=== PATIENT | male | born 1990 | race African-American/Black ===

== ENCOUNTER 2021-01-26 10:15 | Emergency (ER) | payer OTHER, SELFPAY ==
--- NOTE | 2021-01-26 11:01 | EDPHYS ---
Physician Documentation [facility] Name: Venancio Velasquez Age: 30 yrs Sex: Male : 1990 Arrival Date: 01/26/2021 Time: 10:17 Bed 12 Private MD: JAC Physician Lorenzo Ferreira HPI: 01/26 11:03 This 30 yrs old Black Male presents to ER via Ambulatory with complaints of Toothache. kb 11:03 The patient presents with pain, redness, swelling. The problem is located in the lower kb left second bicuspid (#20) and lower left second molar (#18). Onset: The symptoms/episode began/occurred 4 day(s) ago. Duration: The symptoms are continuous. Modifying factors: The symptoms are alleviated by nothing, the symptoms are aggravated by nothing. Associated signs and symptoms: Pertinent positives: pain, redness in area, swelling. Severity of symptoms: At their worst the symptoms were moderate, in the emergency department the symptoms are unchanged. The patient has not experienced similar symptoms in the past. The patient has not recently seen a physician. Historical: - Allergies: 10:47 No Known Allergies; aa5 - PMHx: 10:47 None; aa5 - PSHx: 10:47 None; aa5 - Immunization history:: Client reports having NOT received the Covid vaccine. - Social history:: Smoking status: Patient denies any tobacco usage or history of. ROS: 11:03 Constitutional: Negative for fever, chills, and weight loss. kb 11:03 ENT: Positive for dental pain. 11:03 All other systems are negative. Exam: 11:03 Constitutional: This is a well developed, well nourished patient who is awake, alert, kb and in no acute distress. Head/Face: Normocephalic, atraumatic. Respiratory: Respirations even and unlabored. No increased work of breathing, no retractions or nasal flaring. Skin: Warm, dry with normal turgor. Normal color. MS/ Extremity: Pulses equal, no cyanosis. Neurovascular intact. Full, normal range of motion. Neuro: Awake and alert, GCS 15, oriented to person, place, time, and situation. Moves all extremities. Normal gait. Psych: Awake, alert, with orientation to person, place and time. Behavior, mood, and affect are within normal limits. 11:03 ENT: Dental exam: dental caries, that is moderate, specifically in the lower left second molar (#18) and lower left second bicuspid (#20), fractured teeth are noted, specifically the lower left second molar (#18) and lower left second bicuspid (#20), gum swelling, that is moderate, pain, that is moderate. Vital Signs: 10:45 BP 149 / 90; Pulse 90; Resp 18 S; Temp 99.0(TE); Pulse Ox 97% on R/A; Weight 65.77 kg aa5 (R); Height 5 ft. 8 in. (172.72 cm) (R); 10:45 Body Mass Index 22.05 (65.77 kg, 172.72 cm) aa5 MDM: 10:55 Patient medically screened. kb 11:02 Data reviewed: vital signs, nurses notes. Data interpreted: Pulse oximetry: on room air kb is 97 %. Interpretation: normal. Counseling: I had a detailed discussion with the patient and/or guardian regarding: the historical points, exam findings, and any diagnostic results supporting the discharge/admit diagnosis, the need for outpatient follow up, a dentist, to return to the emergency department if symptoms worsen or persist or if there are any questions or concerns that arise at home. Administered Medications: No medications were administered Disposition: 01/27 05:49 Co-signature as Attending Physician, Lorenzo Ferreira MD I agree with the assessment and demetrio plan of care. Disposition Summary: 01/26/21 11:00 Discharge Ordered Location: Home kb Condition: Stable kb Diagnosis - Periapical abscess without sinus kb Followup: kb - With: Emergency Department - When: As needed - Reason: Worsening of condition Followup: kb - With: Private Physician - When: 2 - 3 days - Reason: Recheck today's complaints, Continuance of care, Re-evaluation by your physician Discharge Instructions: - Discharge Summary Sheet kb - Dental Pain, [id number] kb - Dental Abscess, [id number] kb Forms: - Medication Reconciliation Form kb - Thank You Letter kb - Antibiotic Education kb - Prescription Opioid Use kb Prescriptions: - Augmentin 875-125 mg Oral Tablet - take 1 tablet by ORAL route every 12 hours for 10 days; 20 tablet; Refills: 0, kb Product Selection Permitted - Diclofenac Sodium 75 mg Oral tablet,delayed release (DR/EC) - take 1 tablet by ORAL route 2 times per day As needed; 30 tablet; Refills: 0, kb Product Selection Permitted Signatures: Ada Oviedo, GRAIN WEIGHER-C GRAIN WEIGHER-Ckb Lorenzo Ferreira MD MD cha Calderon, Audri RN RN aa5
--- NOTE | 2021-01-26 11:01 | ER ---
Nurse's Notes [facility] Name: Venancio Velasquez Age: 30 yrs Sex: Male : 1990 Arrival Date: 01/26/2021 Time: 10:17 Bed 12 Private MD: Diagnosis: Periapical abscess without sinus Presentation: 01/26 10:45 Chief complaint: Patient states: "I have a toothache that started Tuesday after I ate aa5 some skittles". Coronavirus screen: At this time, the client does not indicate any symptoms associated with coronavirus-19. Ebola Screen: Patient negative for fever greater than or equal to 101.5 degrees Fahrenheit, and additional compatible Ebola Virus Disease symptoms. Initial Sepsis Screen: Does the patient meet any 2 criteria? No. Patient's initial sepsis screen is negative. Does the patient have a suspected source of infection? No. Patient's initial sepsis screen is negative. Risk Assessment: Do you want to hurt yourself or someone else? Patient reports no desire to harm self or others. Onset of symptoms was December 2020. 10:45 Method Of Arrival: Ambulatory aa5 10:45 Acuity: ROSY 5 aa5 Historical: - Allergies: 10:47 No Known Allergies; aa5 - PMHx: 10:47 None; aa5 - PSHx: 10:47 None; aa5 - Immunization history:: Client reports having NOT received the Covid vaccine. - Social history:: Smoking status: Patient denies any tobacco usage or history of. Vital Signs: 10:45 BP 149 / 90; Pulse 90; Resp 18 S; Temp 99.0(TE); Pulse Ox 97% on R/A; Weight 65.77 kg aa5 (R); Height 5 ft. 8 in. (172.72 cm) (R); 10:45 Body Mass Index 22.05 (65.77 kg, 172.72 cm) aa5 ED Course: 10:17 Patient arrived in ED. as 10:47 Triage completed. aa5 10:47 Arm band placed on. aa5 10:55 Ada Oviedo FNP-C is PHCP. kb 10:55 Lorenzo Ferreira MD is Attending Physician. kb 11:28 No provider procedures requiring assistance completed. Patient did not have IV access iw during this emergency room visit. Administered Medications: No medications were administered Outcome: 11:00 Discharge ordered by . kathryn 11:27 Discharged to home ambulatory. iw 11:27 Condition: stable 11:27 Discharge instructions given to patient, Instructed on discharge instructions, follow up and referral plans. medication usage, Demonstrated understanding of instructions, follow-up care, medications, Prescriptions given X 2. 11:28 Patient left the ED. iw Signatures: Ada Oviedo, CHROME WORKER-C CHROME WORKER-Cora Ortiz as Harika Dunn, RN RN iw Mariia Palencia, RN RN aa5
[2021-01-26 11:33] VITALS: BP 149/90; TEMP 99; O2SAT 97
== END 2021-01-26 11:28 | disposition home or self-care (01) ==
LOC: ER 10:15
DX: K04.7 Periapical abscess without sinus (principal)
CPT/HCPCS: 99282